=== PATIENT | male | born 1990 | race Caucasian/White ===

== ENCOUNTER 2016-12-07 00:53 | Emergency (ER) | payer BC, OTHER ==
[~2016-12-07] VITALS: Ht 185.4 cm; Wt 115.7 kg
[~2016-12-07 00:53] MED LIST: ACYCLOVIR800 MG PO; AMOXIL250 M1 PO; ANAPROX DS550 MG PO; CENTRAL-VITE S1 EACH PO; CLEOCIN150 MG PO; FLEXERIL10 MG PO; HYDROCODONE BIT1 T11 PO; IBU800 MG PO; KETOROLAC10 MG PO; MOTRIN800 MG PO; NKHM; TRAMADOL HCL50 MG PO; TYLENOL W/CODE480 ML PO; ULTRAM50 MG PO; ZOFRAN ODT4 MG SL
[2016-12-07 01:08] VITALS: BP 128/74
[2016-12-07] MEDS ORDERED: PEPCID AC20 MG PO (01:25)
[2016-12-07] MEDS ORDERED: PROVENTIL0.09 MG/A1 INH (01:25)
[2016-12-07] MEDS ORDERED: ROBITUSSIN AC 110 ML PO (01:25)
[2016-12-07 01:27] LABS: BASO # 0.1 10*3/uL (0.0-0.1); BASO % 1.1 % (0.0-1.0); EOS # 0.5 10*3/uL (0.0-0.4); EOS % 5.1 % (1.0-4.0); HEMATOCRIT 47.2 % (42.0-52.0); HEMOGLOBIN 16.7 g/dl (14.0-18.0); IG # 0.1 10*3/uL (0.0-0.1); LYMPH # 4.7 10*3/uL (1.3-4.4); LYMPH % 45.7 % (27.0-41.0); MEAN CELL VOLUME 85.4 fl (80.0-94.0); MEAN CORPUSCULAR HGB 30.2 pg (27.0-31.0); MEAN CORPUSCULAR HGB CONC 35.4 g/dl (33.0-37.0); MEAN PLATELET VOLUME 9.8 fl (9.6-12.3); MONO # 0.5 10*3/uL (0.1-1.0); MONO % 4.9 % (3.0-9.0); NEUT # 4.3 10*3/uL (2.3-7.9); NEUT % 42.5 % (47.0-73.0); PLATELET COUNT AUTOMATED 314 10*3/uL (130-400); RED BLOOD COUNT 5.53 10*6/uL (4.50-5.90); WHITE BLOOD COUNT 10.2 10*3/uL (4.8-10.8)
[2016-12-07 01:45] LABS: ALBUMIN 3.9 gm/dl (3.1-4.5); ALKALINE PHOSPHATASE 89 U/L (45-117); BILIRUBIN, TOTAL 0.4 mg/dl (0.2-1.0); BUN 8 mg/dl (7-24); CARBON DIOXIDE 26 mmol/L (21-32); CHLORIDE 101 mmol/L (98-107); EST GLOM FILT AFRICAN AMERICAN > 60 ml/min; GLUCOSE 84 mg/dL (65-99); POTASSIUM 3.5 mmol/L (3.5-5.1); SGOT/AST 33 IU/L (3-35); SGPT/ALT 46 U/L (12-78); SODIUM 140 mmol/L (136-145); TOTAL PROTEIN 8.4 gm/dL (6.4-8.2)
[2016-12-07 02:03] LABS: BILIRUBIN NEGATIVE (NEGATIVE); BLOOD NEGATIVE (NEGATIVE); CLARITY CLEAR (CLEAR); COLOR YELLOW (YELLOW); GLUCOSE NEGATIVE (NEGATIVE); KETONE NEGATIVE (NEGATIVE); LEUKO ESTERASE NEGATIVE (NEGATIVE); NITRITE NEGATIVE (NEGATIVE); PROTEIN NEGATIVE (NEGATIVE); SPECIFIC GRAVITY <= 1.005 (1.005-1.030); UROBILINOGEN 0.2 E.U./dl (0.2-1.0)
[2016-12-07 02:10] LABS: BACTERIA 1+; EPITHELIAL CELLS 0-2; URINE REFLEX COMMENT NO (NO); WBC 0-2 wbc/hpf (0-5)
== END 2016-12-07 02:58 | disposition home or self-care (01) ==
LOC: ED 00:53
PROVIDERS: Emergency Medicine Emergency Medical Services; Physician Assistant
DX: J20.9 Acute bronchitis, unspecified (principal); F10.10 Alcohol abuse, uncomplicated; G43.909 Migraine, unspecified, not intractable, without status migrainosus; F17.200 Nicotine dependence, unspecified, uncomplicated

== ENCOUNTER 2017-02-21 02:23 | Emergency (ER) | payer BC, OTHER ==
[~2017-02-21] VITALS: Ht 177.8 cm; Wt 99.8 kg
[~2017-02-21 02:23] MED LIST changes: +PEPCID AC20 MG PO; +PROVENTIL0.09 MG/A1 INH; +ROBITUSSIN AC 110 ML PO
[2017-02-21 02:30] VITALS: BP 142/91
[2017-02-21 03:37] LABS: BASO # 0.1 10*3/uL (0.0-0.1); BASO % 1.2 % (0.0-1.0); EOS # 0.2 10*3/uL (0.0-0.4); EOS % 2.6 % (1.0-4.0); HEMATOCRIT 44.1 % (42.0-52.0); HEMOGLOBIN 15.1 g/dl (14.0-18.0); LYMPH # 3.5 10*3/uL (1.3-4.4); LYMPH % 44.3 % (27.0-41.0); MEAN CELL VOLUME 89.1 fl (80.0-94.0); MEAN CORPUSCULAR HGB 30.5 pg (27.0-31.0); MEAN CORPUSCULAR HGB CONC 34.2 g/dl (33.0-37.0); MEAN PLATELET VOLUME 10.2 fl (9.6-12.3); MONO # 0.4 10*3/uL (0.1-1.0); MONO % 4.7 % (3.0-9.0); NEUT # 3.7 10*3/uL (2.3-7.9); NEUT % 46.7 % (47.0-73.0); PLATELET COUNT AUTOMATED 255 10*3/uL (130-400); RED BLOOD COUNT 4.95 10*6/uL (4.50-5.90); RED CELL DISTRI WIDTH 12.3 % (0-14.5); WHITE BLOOD COUNT 7.8 10*3/uL (4.8-10.8)
[2017-02-21 03:49] LABS: BUN 13 mg/dl (7-24); CHLORIDE 108 mmol/L (98-107); CREATININE 0.87 mg/dL (0.70-1.30); POTASSIUM 3.4 mmol/L (3.5-5.1); SODIUM 142 mmol/L (136-145)
== END 2017-02-21 12:22 | disposition home or self-care (01) ==
LOC: ED 02:23
PROVIDERS: Emergency Medicine Emergency Medical Services
DX: M25.561 Pain in right knee (principal); F10.129 Alcohol abuse with intoxication, unspecified; G43.909 Migraine, unspecified, not intractable, without status migrainosus; Z79.899 Other long term (current) drug therapy; V10.0XXA Pedal cycle driver injured in collision with pedestrian or animal in nontraffic accident, initial encounter; Y93.55 Activity, bike riding; Y92.89 Other specified places as the place of occurrence of the external cause; Y99.9 Unspecified external cause status

== ENCOUNTER 2018-09-05 05:38 | Emergency (ER) | payer OTHER ==
[~2018-09-05] VITALS: Ht 185.4 cm; Wt 97.5 kg
[2018-09-05 05:41] VITALS: BP 125/81
== END 2018-09-05 07:45 | disposition home or self-care (01) ==
LOC: ED 05:38
DX: S46.811A Strain of other muscles, fascia and tendons at shoulder and upper arm level, right arm, initial encounter (principal); M25.521 Pain in right elbow; F17.200 Nicotine dependence, unspecified, uncomplicated; G43.909 Migraine, unspecified, not intractable, without status migrainosus; Z79.899 Other long term (current) drug therapy; W19.XXXA Unspecified fall, initial encounter; Y93.89 Activity, other specified; Y92.098 Other place in other non-institutional residence as the place of occurrence of the external cause; Y99.8 Other external cause status

== ENCOUNTER 2019-04-05 02:42 | Emergency (ER) | payer OTHER ==
[~2019-04-05] VITALS: Ht 180.3 cm; Wt 106.6 kg
[2019-04-05 02:49] VITALS: BP 142/88
[2019-04-05] MEDS ORDERED: Motrin,Rufen800 MG PO (05:06)
== END 2019-04-05 06:03 | disposition home or self-care (01) ==
LOC: ED
DX: S46.911A Strain of unspecified muscle, fascia and tendon at shoulder and upper arm level, right arm, initial encounter (principal); Z79.899 Other long term (current) drug therapy; W51.XXXA Accidental striking against or bumped into by another person, initial encounter; Y93.72 Activity, wrestling; Y92.89 Other specified places as the place of occurrence of the external cause; Y99.8 Other external cause status

== ENCOUNTER 2019-05-15 19:46 | Emergency (ER) | payer OTHER ==
[~2019-05-15] VITALS: Ht 185.4 cm; Wt 127.5 kg
[~2019-05-15 19:46] MED LIST changes: +Motrin,Rufen800 MG PO
[2019-05-15 19:47] VITALS: BP 147/81
[2019-05-15] MEDS ORDERED: PREDNISONE20 M1 PO (20:51)
[2019-05-15] MEDS ORDERED: ROBITUSSIN DM 101 OZ PO (20:51)
[2019-05-15] MEDS ORDERED: PROVENTIL HFA6.7 GM INH (20:51)
[2019-05-15] MEDS ORDERED: AVPAK AZITHROM250 MG PO (20:51)
== END 2019-05-15 21:50 | disposition home or self-care (01) ==
LOC: ED 19:46
DX: J20.9 Acute bronchitis, unspecified (principal); F17.200 Nicotine dependence, unspecified, uncomplicated; Z79.899 Other long term (current) drug therapy

== ENCOUNTER → 2019-05-16 | Outpatient (CLI) | payer OTHER ==
[~2019-05-16] MED LIST changes: +AVPAK AZITHROM250 MG PO; +PREDNISONE20 M1 PO; +PROVENTIL HFA6.7 GM INH; +ROBITUSSIN DM 101 OZ PO
--- NOTE | ~2019-05-16 | EKG ---
[place], [place] ELECTROCARDIOGRAM REPORT NAME: LUIS VENTURA UNIT #: [id number] ROOM: DOCTOR: MERVAT DRAFT REPORT BIRTHDATE: [birth year] [facility] Test Date: 2019-05-16 Test Time: 11:33:22 Pat Name: LUIS VENTURA Department: op Room: Gender: Serology Technician: : 1990 Requested By: LARRY ORTA Order Number: [id number] Reading MD: Soy López MD Measurements Intervals [place] Rate: 70 P: 39 CA: 170 QRS: -4 QRSD: 92 T: 23 QT: 385 QTc: 416 Interpretive Statements Sinus rhythm Nonspecific ST T changes Electronically Signed On 05-19-2019 10:00:07 PST by Soy López MD CM:EKGRPT:ELECTROCARDIOGRAM REPORT [id number] LARRY CROWELL DRAFT REPORT LARRY ORTA
[2019-05-16 12:38] LABS: HEMATOCRIT 46.9 % (42.0-52.0); HEMOGLOBIN 16.2 g/dl (14.0-18.0); MEAN CELL VOLUME 87.7 fl (80.0-94.0); MEAN CORPUSCULAR HGB 30.3 pg (27.0-31.0); MEAN CORPUSCULAR HGB CONC 34.5 g/dl (33.0-37.0); MEAN PLATELET VOLUME 10.5 fl (9.6-12.3); PLATELET COUNT AUTOMATED 337 10*3/uL (130-400); RED BLOOD COUNT 5.35 10*6/uL (4.50-5.90); RED CELL DISTRI WIDTH 11.9 % (0-14.5); WHITE BLOOD COUNT 17.2 10*3/uL (4.8-10.8)
[2019-05-16 12:45] LABS: URINE AMPHETAMINES < 1000 (1000ng/ml); URINE BARBITURATES < 200 (200ng/ml); URINE BENZODIAZEPINES < 200 (200ng/ml); URINE CANNABINOIDS (THC) < 50 (50ng/ml); URINE COCAINE < 300 (300ng/ml); URINE METHADONE < 300 (300ng/ml); URINE OPIATES < 300 (300ng/ml)
[2019-05-16 12:46] LABS: URINE PHENCYCLIDINE < 25 (25ng/ml)
[2019-05-16 13:02] LABS: BASOPHILS 1 % (0-1); TOTAL CELLS COUNTED 100 #CELLS
[2019-05-16 13:03] LABS: PLATELET SUFFICIENCY NORMAL (NORMAL)
[2019-05-16 13:12] LABS: ALKALINE PHOSPHATASE 73 U/L (45-117); BILIRUBIN, DIRECT < 0.1 mg/dL (0.0-0.2); BUN 17 mg/dl (7-24); CHLORIDE 106 mmol/L (98-107); CREATININE 0.94 mg/dL (0.70-1.30); PHOSPHOROUS 3.3 mg/dL (2.5-4.9); POTASSIUM 4.1 mmol/L (3.5-5.1); SGOT/AST 25 IU/L (3-35); SGPT/ALT 63 U/L (12-78); SODIUM 138 mmol/L (136-145)
[2019-05-17 05:10] LABS: HEPATITIS B SURFACE AG Negative (Negative); HEPATITIS C VIRUS ANTIBODY <0.1 s/co (0.0-0.9)
== END | disposition home or self-care (01) ==
LOC: LAB 11:01
PROVIDERS: Physician Assistant
DX: Z51.81 Encounter for therapeutic drug level monitoring (principal); Z79.899 Other long term (current) drug therapy

== ENCOUNTER 2019-05-17 01:29 | Emergency (ER) | payer OTHER ==
[~2019-05-17] VITALS: Ht 175.2 cm
[2019-05-17 01:30] VITALS: BP 132/86
== END 2019-05-17 02:15 | disposition home or self-care (01) ==
LOC: ED 01:29
DX: S61.214A Laceration without foreign body of right ring finger without damage to nail, initial encounter (principal); W19.XXXA Unspecified fall, initial encounter; Y93.89 Activity, other specified; Y92.89 Other specified places as the place of occurrence of the external cause; Y99.8 Other external cause status

== ENCOUNTER 2019-05-25 05:04 | Emergency (ER) | payer OTHER ==
[2019-05-25 05:04] VITALS: BP 141/82
[2019-05-25] MEDS ORDERED: KEFLEX500 M1 PO (05:42)
== END 2019-05-25 05:56 | disposition home or self-care (01) ==
LOC: ED 05:04
DX: M79.89 Other specified soft tissue disorders (principal); Z48.01 Encounter for change or removal of surgical wound dressing; G43.909 Migraine, unspecified, not intractable, without status migrainosus; Z79.899 Other long term (current) drug therapy

== ENCOUNTER 2019-06-24 23:51 | Emergency (ER) | payer OTHER ==
[~2019-06-24 23:51] MED LIST changes: +KEFLEX500 M1 PO
[2019-06-24 23:59] VITALS: BP 144/93
[2019-06-25] MEDS ORDERED: Tobrex Ophth S2.5 ML OPH (00:41)
[2019-06-25] MEDS ORDERED: ACULAR 0.5%3 ML OPH (00:41)
[2019-06-25] MEDS ORDERED: ZINC10 M4 PO (00:52)
== END 2019-06-25 00:53 | disposition home or self-care (01) ==
LOC: ED 23:51
DX: H10.33 Unspecified acute conjunctivitis, bilateral (principal); F17.200 Nicotine dependence, unspecified, uncomplicated; Z79.899 Other long term (current) drug therapy; Z79.2 Long term (current) use of antibiotics; X08.8XXA Exposure to other specified smoke, fire and flames, initial encounter; Y93.89 Activity, other specified; Y92.89 Other specified places as the place of occurrence of the external cause; Y99.8 Other external cause status

== ENCOUNTER 2019-07-02 02:44 | Emergency (ER) | payer OTHER ==
[~2019-07-02] VITALS: Ht 177.8 cm; Wt 83.9 kg
[~2019-07-02 02:44] MED LIST changes: +ACULAR 0.5%3 ML OPH; +Tobrex Ophth S2.5 ML OPH; +ZINC10 M4 PO
[2019-07-02 02:54] VITALS: BP 133/61
== END 2019-07-02 04:20 | disposition home or self-care (01) ==
LOC: ED 02:44
DX: S66.911A Strain of unspecified muscle, fascia and tendon at wrist and hand level, right hand, initial encounter (principal); Z79.899 Other long term (current) drug therapy; W18.39XA Other fall on same level, initial encounter; Y93.89 Activity, other specified; Y92.098 Other place in other non-institutional residence as the place of occurrence of the external cause; Y99.8 Other external cause status

== ENCOUNTER 2019-12-01 00:22 | Emergency (ER) | payer OTHER ==
[~2019-12-01] VITALS: Ht 190.5 cm; Wt 111.1 kg
[2019-12-01 00:33] VITALS: BP 151/94
[2019-12-01] MEDS ORDERED: CEPHALEXIN500 M1 PO (00:49)
== END 2019-12-01 01:53 | disposition home or self-care (01) ==
LOC: ED 00:22
DX: S61.411A Laceration without foreign body of right hand, initial encounter (principal); Z79.899 Other long term (current) drug therapy; W45.8XXA Other foreign body or object entering through skin, initial encounter; Y93.89 Activity, other specified; Y92.89 Other specified places as the place of occurrence of the external cause; Y99.8 Other external cause status

== ENCOUNTER 2019-12-07 18:28 | Emergency (ER) | payer OTHER ==
[~2019-12-07] VITALS: Wt 127.0 kg
[~2019-12-07 18:28] MED LIST changes: +CEPHALEXIN500 M1 PO
[2019-12-07 18:36] VITALS: BP 172/89
== END 2019-12-07 19:41 | disposition home or self-care (01) ==
LOC: ED 18:28
DX: S61.512A Laceration without foreign body of left wrist, initial encounter (principal); S51.812A Laceration without foreign body of left forearm, initial encounter; Z79.899 Other long term (current) drug therapy; Z79.2 Long term (current) use of antibiotics; W26.8XXA Contact with other sharp object(s), not elsewhere classified, initial encounter; Y93.89 Activity, other specified; Y92.89 Other specified places as the place of occurrence of the external cause; Y99.8 Other external cause status

== ENCOUNTER 2020-01-06 03:30 | Emergency (ER) | payer OTHER ==
[2020-01-06 03:42] VITALS: BP 147/81
== END 2020-01-06 04:05 | disposition home or self-care (01) ==
LOC: ED 03:30
DX: S02.5XXA Fracture of tooth (traumatic), initial encounter for closed fracture (principal); S00.81XA Abrasion of other part of head, initial encounter; G43.909 Migraine, unspecified, not intractable, without status migrainosus; Y08.89XA Assault by other specified means, initial encounter; Y93.89 Activity, other specified; Y92.89 Other specified places as the place of occurrence of the external cause; Y99.8 Other external cause status

== ENCOUNTER 2020-01-11 02:54 | Emergency (ER) | payer OTHER ==
[~2020-01-11] VITALS: Ht 190.5 cm; Wt 115.7 kg
[2020-01-11 03:09] VITALS: BP 134/79
[2020-01-11] MEDS ORDERED: ULTRAM50 MG PO (04:54)
== END 2020-01-11 05:20 | disposition home or self-care (01) ==
LOC: ED 02:54
DX: S62.354A Nondisplaced fracture of shaft of fourth metacarpal bone, right hand, initial encounter for closed fracture (principal); G43.909 Migraine, unspecified, not intractable, without status migrainosus; Z79.899 Other long term (current) drug therapy; Z79.2 Long term (current) use of antibiotics; Z96.22 Myringotomy tube(s) status; Y04.0XXA Assault by unarmed brawl or fight, initial encounter; Y93.89 Activity, other specified; Y92.89 Other specified places as the place of occurrence of the external cause; Y99.8 Other external cause status

== ENCOUNTER 2020-01-29 04:49 | Emergency (ER) | payer OTHER ==
[2020-01-29 04:49] VITALS: BP 146/92
[2020-01-29] MEDS ORDERED: TRAMADOL HCL50 MG PO (05:26)
== END 2020-01-29 05:57 | disposition home or self-care (01) ==
LOC: ED 04:49
DX: T23.211A Burn of second degree of right thumb (nail), initial encounter (principal); T23.131A Burn of first degree of multiple right fingers (nail), not including thumb, initial encounter; X03.8XXA Other exposure to controlled fire, not in building or structure, initial encounter; Y93.89 Activity, other specified; Y92.89 Other specified places as the place of occurrence of the external cause; Y99.8 Other external cause status

== ENCOUNTER 2020-02-04 07:18 | Emergency (ER) | payer OTHER ==
[2020-02-04 07:18] VITALS: BP 122/69
== END 2020-02-04 09:23 | disposition home or self-care (01) ==
LOC: ED 07:18
DX: S69.91XA Unspecified injury of right wrist, hand and finger(s), initial encounter (principal); Z79.899 Other long term (current) drug therapy; X58.XXXA Exposure to other specified factors, initial encounter; Y93.89 Activity, other specified; Y92.89 Other specified places as the place of occurrence of the external cause; Y99.8 Other external cause status

== ENCOUNTER 2020-02-25 02:41 | Emergency (ER) | payer OTHER ==
[~2020-02-25] VITALS: Ht 193 cm; Wt 115.7 kg
[2020-02-25 03:01] VITALS: BP 122/77
== END 2020-02-25 05:52 | disposition home or self-care (01) ==
LOC: ED 02:41
DX: S80.12XA Contusion of left lower leg, initial encounter (principal); G43.909 Migraine, unspecified, not intractable, without status migrainosus; Y08.89XA Assault by other specified means, initial encounter; Y93.89 Activity, other specified; Y92.89 Other specified places as the place of occurrence of the external cause; Y99.8 Other external cause status

== ENCOUNTER 2020-04-25 21:28 | Emergency (ER) | payer OTHER ==
[~2020-04-25] VITALS: Ht 187.9 cm; Wt 105.7 kg
[2020-04-25 21:35] VITALS: BP 168/91
[2020-04-25] MEDS ORDERED: AUGMENTIN 875-875 MG PO (22:49)
== END 2020-04-26 00:08 | disposition home or self-care (01) ==
LOC: ED 21:28
DX: J02.0 Streptococcal pharyngitis (principal)

== ENCOUNTER → 2020-05-06 | Outpatient (CLI) | payer OTHER ==
[~2020-05-06] MED LIST changes: +AUGMENTIN 875-875 MG PO
== END | disposition home or self-care (01) ==
LOC: RESCLI 04:02
PROVIDERS: ATTEND Internal Medicine Nephrology
DX: Z13.39 Encounter for screening examination for other mental health and behavioral disorders (principal); Z23 Encounter for immunization; J02.0 Streptococcal pharyngitis; J45.20 Mild intermittent asthma, uncomplicated; E66.9 Obesity, unspecified; K21.9 Gastro-esophageal reflux disease without esophagitis; J30.2 Other seasonal allergic rhinitis; F19.10 Other psychoactive substance abuse, uncomplicated; F17.210 Nicotine dependence, cigarettes, uncomplicated; Z76.89 Persons encountering health services in other specified circumstances

== ENCOUNTER 2020-05-09 06:13 | Emergency (ER) | payer OTHER ==
[~2020-05-09] VITALS: Wt 99.8 kg
[2020-05-09 06:19] VITALS: BP 150/63
[2020-05-09 08:02] LABS: BASO # 0.1 10*3/uL (0.0-0.1); BASO % 1.3 % (0.0-1.0); EOS # 0.3 10*3/uL (0.0-0.4); EOS % 3.8 % (1.0-4.0); HEMATOCRIT 43.7 % (42.0-52.0); LYMPH # 2.6 10*3/uL (1.3-4.4); LYMPH % 35.9 % (27.0-41.0); MEAN CELL VOLUME 88.3 fl (80.0-94.0); MEAN CORPUSCULAR HGB 29.5 pg (27.0-31.0); MEAN CORPUSCULAR HGB CONC 33.4 g/dl (33.0-37.0); MEAN PLATELET VOLUME 9.8 fl (9.6-12.3); MONO # 0.4 10*3/uL (0.1-1.0); MONO % 5.7 % (3.0-9.0); NEUT # 3.8 10*3/uL (2.3-7.9); NEUT % 52.7 % (47.0-73.0); PLATELET COUNT AUTOMATED 350 10*3/uL (130-400); RED BLOOD COUNT 4.95 10*6/uL (4.50-5.90); RED CELL DISTRI WIDTH 12.2 % (0-14.5); WHITE BLOOD COUNT 7.1 10*3/uL (4.8-10.8)
[2020-05-09 08:19] LABS: ALBUMIN 3.9 gm/dl (3.1-4.5); ALKALINE PHOSPHATASE 69 U/L (45-117); BUN 11 mg/dl (7-24); CHLORIDE 109 mmol/L (98-107); CREATININE 0.89 mg/dL (0.70-1.30); POTASSIUM 4.1 mmol/L (3.5-5.1); SGOT/AST 37 IU/L (3-35); SGPT/ALT 68 U/L (12-78); SODIUM 142 mmol/L (136-145); TOTAL PROTEIN 7.9 gm/dL (6.4-8.2)
== END 2020-05-09 16:01 | disposition home or self-care (01) ==
LOC: ED 06:13
PROVIDERS: Emergency Medicine
DX: F10.929 Alcohol use, unspecified with intoxication, unspecified (principal); M25.562 Pain in left knee; M79.672 Pain in left foot; M25.572 Pain in left ankle and joints of left foot; Y90.9 Presence of alcohol in blood, level not specified

== ENCOUNTER 2020-12-18 10:09 | Emergency (ER) | payer OTHER ==
[~2020-12-18] VITALS: Ht 185.4 cm; Wt 90.7 kg
[2020-12-18 10:23] VITALS: BP 127/93
== END 2020-12-18 12:14 | disposition home or self-care (01) ==
LOC: ED 10:09
DX: S06.0X0A Concussion without loss of consciousness, initial encounter (principal); S01.01XA Laceration without foreign body of scalp, initial encounter; S80.212A Abrasion, left knee, initial encounter; F10.129 Alcohol abuse with intoxication, unspecified; R55 Syncope and collapse; Z79.899 Other long term (current) drug therapy; W18.30XA Fall on same level, unspecified, initial encounter; Y93.89 Activity, other specified; Y92.89 Other specified places as the place of occurrence of the external cause; Y99.9 Unspecified external cause status; Y90.9 Presence of alcohol in blood, level not specified

== ENCOUNTER → 2020-12-31 | Outpatient (CLI) | payer OTHER ==
[~2020-12-31] MED LIST changes: +PREDNISONE10 M1 PO; +ZITHROMAX250 MG PO
== END ==
LOC: WOUNDCARE 12-29 02:22
PROVIDERS: ATTEND Nurse Practitioner
DX: S01.81XA Laceration without foreign body of other part of head, initial encounter (principal); F17.200 Nicotine dependence, unspecified, uncomplicated; W19.XXXA Unspecified fall, initial encounter; Y93.89 Activity, other specified; Y92.89 Other specified places as the place of occurrence of the external cause; Y99.8 Other external cause status

== ENCOUNTER 2021-01-02 00:16 | Emergency (ER) | payer OTHER ==
[~2021-01-02] VITALS: Ht 185.4 cm; Wt 130.6 kg
[~2021-01-02 00:16] MED LIST changes: -PREDNISONE10 M1 PO; -ZITHROMAX250 MG PO
[2021-01-02 00:25] VITALS: BP 133/78
[2021-01-02] MEDS ORDERED: ZITHROMAX250 MG PO (02:28)
[2021-01-02] MEDS ORDERED: PREDNISONE10 M1 PO (02:28)
== END 2021-01-02 02:38 | disposition home or self-care (01) ==
LOC: ED 00:16
DX: J45.909 Unspecified asthma, uncomplicated (principal); G43.909 Migraine, unspecified, not intractable, without status migrainosus; F17.200 Nicotine dependence, unspecified, uncomplicated; Z79.899 Other long term (current) drug therapy; Z79.2 Long term (current) use of antibiotics; Z96.22 Myringotomy tube(s) status

== ENCOUNTER → 2021-07-06 | Outpatient (CLI) | payer OTHER ==
[~2021-07-06] MED LIST changes: +PREDNISONE10 M1 PO; +ZITHROMAX250 MG PO
== END | disposition home or self-care (01) ==
LOC: COVID19 17:02
PROVIDERS: ATTEND Internal Medicine
DX: Z11.52 Encounter for screening for COVID-19 (principal)

== ENCOUNTER 2022-06-10 00:31 | Emergency (ER) | payer OTHER ==
[~2022-06-10] VITALS: Wt 90.7 kg
[2022-06-10 00:41] VITALS: BP 137/85
[2022-06-10 01:19] LABS: BILIRUBIN Negative (Negative); BLOOD 1+ (Negative); CLARITY Cloudy (Clear); COLOR Yellow (Yellow); GLUCOSE Negative (Negative); KETONE Trace (Negative); LEUKO ESTERASE 3+ (Negative); NITRITE Negative (Negative); PH 6.5 (4.5-8.0); SPECIFIC GRAVITY 1.025 (1.001-1.030)
[2022-06-10 01:28] LABS: BACTERIA 2+; WBC TNTC wbc/hpf (0-5)
[2022-06-10] MEDS ORDERED: CIPRO500 MG PO (01:32)
== END 2022-06-10 02:05 | disposition home or self-care (01) ==
LOC: ED 00:31
PROVIDERS: Internal Medicine
DX: N39.0 Urinary tract infection, site not specified (principal)

== ENCOUNTER 2022-12-15 03:26 | Emergency (ER) | payer OTHER ==
[~2022-12-15] VITALS: Ht 180.3 cm; Wt 86.2 kg
[~2022-12-15 03:26] MED LIST changes: +CIPRO500 MG PO
[2022-12-15 03:39] VITALS: BP 140/80
== END 2022-12-15 04:43 | disposition left against medical advice (07) ==
LOC: ED 03:26
DX: T15.12XA Foreign body in conjunctival sac, left eye, initial encounter (principal); J45.909 Unspecified asthma, uncomplicated; G43.909 Migraine, unspecified, not intractable, without status migrainosus; Z79.899 Other long term (current) drug therapy; Z79.2 Long term (current) use of antibiotics; X58.XXXA Exposure to other specified factors, initial encounter; Y93.89 Activity, other specified; Y92.89 Other specified places as the place of occurrence of the external cause; Y99.8 Other external cause status

== ENCOUNTER 2023-09-01 21:29 | Emergency (ER) | payer OTHER ==
[2023-09-01 21:44] VITALS: BP 138/40
[2023-09-01 22:35] LABS: BILIRUBIN Negative (Negative); BLOOD Negative (Negative); CLARITY Clear (Clear); COLOR Dark Yellow (Yellow); GLUCOSE Trace (Negative); KETONE Trace (Negative); LEUKO ESTERASE Negative (Negative); NITRITE Negative (Negative); SPECIFIC GRAVITY >= 1.030 (1.001-1.030)
[2023-09-01] MEDS ORDERED: AZITHROMYCIN 250 MG TAB PO ONE (22:40)
[2023-09-01] MEDS ORDERED: HYDROmorphONE Hydrochloride 0.5 MG/0.5 ML SYRINGE IV ONE (22:45)
[2023-09-01] MEDS ORDERED: Water, Sterile 10 ML VIAL ONE (22:48)
[2023-09-01 22:52] LABS: CALCIUM OXALATE CRYSTALS 1+; MUCOUS 1+; RBC 0-2 rbc/hpf (0-2)
== END 2023-09-01 23:15 | disposition home or self-care (01) ==
LOC: ED 21:29
PROVIDERS: Internal Medicine
DX: Z20.2 Contact with and (suspected) exposure to infections with a predominantly sexual mode of transmission (principal); Z96.22 Myringotomy tube(s) status

== ENCOUNTER 2023-11-14 21:04 | Emergency (ER) | payer OTHER ==
[~2023-11-14] VITALS: Ht 182.8 cm; Wt 90.7 kg
[2023-11-14 21:08] VITALS: BP 111/66
[2023-11-14] MEDS ORDERED: Bacitracin Zinc 14 GM TUBE T ONE (21:30)
[2023-11-14] MEDS ORDERED: Acetaminophen/Hydrocodone 5 MG/325 MG TABLET PO ONE (23:35)
[2023-11-14] MEDS ORDERED: Ondansetron Hydrochloride 4 MG TAB SL ONE (23:35)
== END 2023-11-14 23:44 ==
LOC: ED 21:04
DX: S00.81XA Abrasion of other part of head, initial encounter (principal); Z96.22 Myringotomy tube(s) status; Y04.8XXA Assault by other bodily force, initial encounter; Y93.89 Activity, other specified; Y92.89 Other specified places as the place of occurrence of the external cause; Y99.8 Other external cause status

== ENCOUNTER 2024-12-03 01:33 | Emergency (ER) | payer OTHER ==
[~2024-12-03] VITALS: Wt 111.1 kg
[2024-12-03 01:45] VITALS: BP 137/80
[2024-12-03] MEDS ORDERED: Amoxicillin/Clavulanate Pota 875 MG TAB PO ONE (01:45)
[2024-12-03] MEDS ORDERED: LIDOCAINE HCL/EPINEPHRINE BIT 1.8 ML CARTRIDGE IJ ONE (02:45)
[2024-12-03] MEDS ORDERED: AMOX-CLAV 875-1 EACH PO (02:52)
[2024-12-03] MEDS ORDERED: LIDOCAINE HCL/EPINEPHRINE 50 ML VIAL ONE (03:03)
[2024-12-03] MEDS ORDERED: Bacitracin Zinc 14 GM TUBE T ONE (03:05)
== END 2024-12-03 03:12 ==
LOC: ED 01:33
DX: S61.011A Laceration without foreign body of right thumb without damage to nail, initial encounter (principal); Z96.22 Myringotomy tube(s) status; X58.XXXA Exposure to other specified factors, initial encounter; Y93.89 Activity, other specified; Y92.89 Other specified places as the place of occurrence of the external cause; Y99.8 Other external cause status